=== PATIENT | male | born 1975 | race Caucasian/White ===

== ENCOUNTER 2018-08-30 08:24 | Emergency (ER) | payer BC ==
[~2018-08-30] VITALS: Ht 175.3 cm; Wt 79.4 kg
[2018-08-30 09:02] VITALS: BP 128/79
[2018-08-30] MEDS ORDERED: KETOROLAC TROMETH 60MG/2ML VIAL IM ONE (10:00)
== END 2018-08-30 10:21 | disposition home or self-care (01) ==
LOC: ER 08:24
DX: S29.011A Strain of muscle and tendon of front wall of thorax, initial encounter (principal); X58.XXXA Exposure to other specified factors, initial encounter; Y93.66 Activity, soccer; Y99.8 Other external cause status; Y92.89 Other specified places as the place of occurrence of the external cause
CPT/HCPCS: 71101; 93005; 96372; 99283; J1885